=== PATIENT | female | born 1980 | race Caucasian/White ===

== ENCOUNTER 2025-03-17 19:46 | Inpatient (IN) | payer SELFPAY ==
[~2025-03-17] VITALS: Ht 149.9 cm; Wt 59.9 kg
[2025-03-17] MEDS: IV NS 0.9% 1,000 ML BAG IV ONE ×2 (20:37→21:12)
[2025-03-17] MEDS ORDERED: IV NS 0.9% 250 ML IV ONE (20:41)
[2025-03-17] MEDS ORDERED: CT SWABBABLE VALVE TRANS SET 1 EA INFUS.SET MC ONE (20:41)
[2025-03-17] MEDS ORDERED: IOHEXOL-350 100 ML VIAL IV ONE (20:41)
[2025-03-17 20:42] LABS: PLATELET COUNT (AUTO) 131 K/uL (150-450); RED BLOOD CELL COUNT(AUTO) 4.27 MIL/uL (4.0-5.2); RED CELL DISTRIBUTION WIDTH 13.8 % (11.5-15.0)
[2025-03-17] MEDS ORDERED: ONDANSETRON HCL/PF 4 MG/2 ML VIAL ONE (20:42)
[2025-03-17 20:46] LABS: PREGNANCY TEST URINE QUAL NEGATIVE (NEGATIVE)
[2025-03-17] MEDS ORDERED: PROCHLORPERAZINE EDISYLATE 10 MG/2 ML VIAL ONE (20:46)
[2025-03-17 20:48] LABS: WHITE BLOOD COUNT (AUTO) 37.1 K/uL (4.3-11.0)
[2025-03-17 20:49] LABS: CALCIUM, SERUM 8.8 mg/dL (8.5-10.1); CREATININE 1.3 mg/dL (0.6-1.3); SODIUM SERUM 137.0 mmol/L (136-145); UREA NITROGEN, BLOOD 28.0 mg/dL (7-18)
[2025-03-17] MEDS: KETOROLAC TROMETHAMINE 15 MG/ML VIAL IV ONE (20:52)
[2025-03-17 21:00] LABS: INR 1.07 (0.91-1.10)
[2025-03-17] MEDS: ONDANSETRON HCL/PF 4 MG/2 ML VIAL IVP ONE (21:00)
[2025-03-17] MEDS: PROCHLORPERAZINE EDISYLATE 10 MG/2 ML VIAL IVP ONE (21:00)
[2025-03-17] MEDS ORDERED: CEFEPIME 1 GM VIAL ONE (21:06)
[2025-03-17 21:20] LABS: LYMPHOCYTES % (MANUAL) 4 % (16-48); MONOCYTES % (MANUAL) 4 % (0-11.0); NEUTROPHILS % (MANUAL) 92 (42-76)
[2025-03-17] MEDS: CEFEPIME 1 GM in IV D5W 50 ML IV ONE (21:20)
[2025-03-17 21:21] LABS: PLATELET ESTIMATE ADEQUATE
[2025-03-17] MEDS ORDERED: VANCOMYCIN 1 GM /D5W 250 ML PB IV ONE (21:24)
[2025-03-17] MEDS: VANCOMYCIN 1 GM in IV D5W 250 ML IV ONE (21:53)
[2025-03-17 21:55] LABS: ASPARTATE AMINOTRANSFERASE 80 U/L (15-37); TOTAL PROTEIN, SERUM 6.2 g/dL (6.4-8.2)
[2025-03-17 21:58] LABS: LACTIC ACID 1.7 mmol/L (0.4-2.0)
[2025-03-17 22:30] LABS: APPEARANCE,URINE SLIGHTLY CLOUDY (CLEAR); BLOOD, URINE 2+ Ery/uL (NEGATIVE); LEUKOCYTE ESTERASE ,URINE NEGATIVE (NEGATIVE); NITRITE, URINE NEGATIVE (NEGATIVE); UGLUCOSE NEGATIVE (NEGATIVE)
[2025-03-17] MEDS ORDERED: MAG HYDROX/AL HYDROX/SIMETH 30 ML UDC PO PRN (22:30)
[2025-03-17] MEDS ORDERED: Z GUARD REMEDY 4 OZ OINT TP PRN (22:30)
[2025-03-17] MEDS ORDERED: MAGNESIUM HYDROXIDE 30 ML UDC PO PRN (22:30)
[2025-03-17] MEDS ORDERED: DOSING PER PHARMACY-VANCOMYCIN IV XX PRN (22:30)
[2025-03-17 22:40] LABS: ADD URINE CULTURE YES
[2025-03-17 22:41] LABS: COARSE GRANULAR CASTS,URINE Few /LPF (None Seen); SQUAMOUS EPITHELIAL CELL,UR Many /HPF (None Seen)
[2025-03-17 23:35] VITALS: BP 99/60; TEMP 98.1; O2SAT 99
[2025-03-17] MEDS: IV NS 0.9% 1,000 ML IV PRN (23:55)
[2025-03-18 01:34] VITALS: BP 100/60; TEMP 98.1; O2SAT 99
[2025-03-18 04:00] VITALS: BP 91/47; TEMP 98.1; O2SAT 96
[2025-03-18 04:07] VITALS: BP 110/71; TEMP 98.1; O2SAT 96
[2025-03-18] MEDS: PANTOPRAZOLE 40 MG TABLET.DR PO SCH (07:51)
[2025-03-18] MEDS: ACETAMINOPHEN 325 MG TABLET PO PRN (07:51)
[2025-03-18 08:14] LABS: PLATELET COUNT (AUTO) 97 K/uL (150-450); RED BLOOD CELL COUNT(AUTO) 3.28 MIL/uL (4.0-5.2); RED CELL DISTRIBUTION WIDTH 13.8 % (11.5-15.0)
[2025-03-18 08:18] LABS: CALCIUM, SERUM 7.8 mg/dL (8.5-10.1); CREATININE 1.0 mg/dL (0.6-1.3); PHOSPHORUS 3.2 mg/dL (2.5-4.9); SODIUM SERUM 139.0 mmol/L (136-145); UREA NITROGEN, BLOOD 15.0 mg/dL (7-18)
[2025-03-18 08:38] LABS: WHITE BLOOD COUNT (AUTO) 30.4 K/uL (4.3-11.0)
[2025-03-18] MEDS: CEFEPIME 1 GM in IV D5W 50 ML IV SCH (08:43)
[2025-03-18] MEDS: VANCOMYCIN HCL 1.25 GM in IV D5W 250 ML IV SCH (09:35)
[2025-03-18 12:00] VITALS: BP 100/46; TEMP 98.2; O2SAT 95
[2025-03-18 13:13] LABS: LYMPHOCYTES % (MANUAL) 5 % (16-48); MONOCYTES % (MANUAL) 4 % (0-11.0); NEUTROPHILS % (MANUAL) 91 (42-76)
[2025-03-18 13:14] LABS: BASOPHILS % (MANUAL) 0 % (0.0-2.0); EOSINOPHILS % (MANUAL) 0 % (0-4); PLATELET ESTIMATE DECREASED
[2025-03-18 13:27] LABS: LDL 64.0 mg/dL (0-99)
[2025-03-18] MEDS: DIVALPROEX SODIUM 250 MG TABLET.DR PO ONE (15:47)
[2025-03-18] MEDS: IBUPROFEN 600 MG TABLET PO ONE (15:47)
[2025-03-18 17:25] LABS: PREGNANCY TEST URINE QUAL NEGATIVE (NEGATIVE)
[2025-03-18 20:00] VITALS: BP 107/54; TEMP 98.1; O2SAT 97
[2025-03-18 23:06] LABS: HIV-1/2 ANTIBODY NON REACTIVE (NONREACTIVE)
[2025-03-19] VITALS: BP 114/63; TEMP 98.1; O2SAT 99
[2025-03-19 04:00] VITALS: BP 123/70; TEMP 98.5; O2SAT 97
[2025-03-19 07:00] VITALS: BP 113/62; TEMP 98.4; O2SAT 92
[2025-03-19] MEDS: ONDANSETRON HCL/PF 4 MG/2 ML VIAL IVP PRN (12:19)
[2025-03-19 15:00] VITALS: BP 114/76; TEMP 97.9; O2SAT 96
[2025-03-19 15:56] LABS: PLATELET COUNT (AUTO) 115 K/uL (150-450); RED BLOOD CELL COUNT(AUTO) 3.47 MIL/uL (4.0-5.2); RED CELL DISTRIBUTION WIDTH 14.1 % (11.5-15.0); WHITE BLOOD COUNT (AUTO) 14.6 K/uL (4.3-11.0)
[2025-03-19 16:11] LABS: CALCIUM, SERUM 8.1 mg/dL (8.5-10.1); CREATININE 0.6 mg/dL (0.6-1.3); SODIUM SERUM 144.0 mmol/L (136-145); UREA NITROGEN, BLOOD 6.0 mg/dL (7-18)
[2025-03-19 20:00] VITALS: BP 120/72; TEMP 97.9; O2SAT 97
[2025-03-19] MEDS: VANCOMYCIN 750 MG in IV D5W 250 ML IV SCH (20:12)
[2025-03-20] VITALS: BP 125/72; TEMP 98.3; O2SAT 97
[2025-03-20] MEDS: HYDROCODONE/APAP 5/325MG TABLET PO PRN (00:24)
[2025-03-20] MEDS: TEMAZEPAM 15 MG CAPSULE PO PRN (00:25)
[2025-03-20 04:00] VITALS: BP 123/53; TEMP 98.2; O2SAT 97
[2025-03-20 08:00] VITALS: BP 96/48; TEMP 98.4; O2SAT 95
[2025-03-20 10:26] LABS: CALCIUM, SERUM 8.1 mg/dL (8.5-10.1); CREATININE 0.5 mg/dL (0.6-1.3); SODIUM SERUM 142.0 mmol/L (136-145); UREA NITROGEN, BLOOD 5.0 mg/dL (7-18)
[2025-03-20 10:33] LABS: ASPARTATE AMINOTRANSFERASE 61.0 U/L (15-37); TOTAL PROTEIN, SERUM 6.0 g/dL (6.4-8.2)
[2025-03-20] MEDS ORDERED: CIPR500S2 PO (11:02)
[2025-03-20 11:05] LABS: PLATELET COUNT (AUTO) 126 K/uL (150-450); RED BLOOD CELL COUNT(AUTO) 3.66 MIL/uL (4.0-5.2); RED CELL DISTRIBUTION WIDTH 14.1 % (11.5-15.0); WHITE BLOOD COUNT (AUTO) 7.9 K/uL (4.3-11.0)
[2025-03-20 14:54] LABS: EOSINOPHILS % (MANUAL) 3 % (0-4); LYMPHOCYTES % (MANUAL) 22 % (16-48); MONOCYTES % (MANUAL) 3 % (0-11.0); MYELOCYTES % 3 % (0-0); NEUTROPHILS % (MANUAL) 69 (42-76); PLATELET ESTIMATE DECREASED
== END 2025-03-20 11:00 | disposition left against medical advice (07) | DRG 872 ==
LOC: ER 19:48 → MED 22:47 → TELE 03-18 06:09
PROVIDERS: ADMIT Nurse Practitioner Acute Care; ATTEND Nurse Practitioner Acute Care
DX: A41.9 Sepsis, unspecified organism (principal); G93.89 Other specified disorders of brain; N39.0 Urinary tract infection, site not specified; E86.0 Dehydration; Z86.79 Personal history of other diseases of the circulatory system; F17.210 Nicotine dependence, cigarettes, uncomplicated; Z86.73 Personal history of transient ischemic attack (TIA), and cerebral infarction without residual deficits; R74.01 Elevation of levels of liver transaminase levels; Z90.49 Acquired absence of other specified parts of digestive tract; Z86.69 Personal history of other diseases of the nervous system and sense organs; Z98.890 Other specified postprocedural states; R79.89 Other specified abnormal findings of blood chemistry; G43.909 Migraine, unspecified, not intractable, without status migrainosus
CPT/HCPCS: 36415; 70450-TC; 70496-TC; 71045-TC; 76705-TC; 80048-TC; 80061-TC; 80076-TC; 80202-TC; 81001; 82607-TC; 83605-TC; 83735-TC; 83921; 84100-TC; 84425; 84443-TC; 84484-TC; 84703-TC; 85025-TC; 85027-TC; 85730-TC; 87040-TC; 87806; A4223; G0378; J0692; J0780; J1200; J2405; J3373; J3374; J7030; J7050; J7060; Q9967